=== PATIENT | female | born 1950 | race African-American/Black ===

== ENCOUNTER 2018-05-09 07:48 | Emergency (ER) | payer OTHER ==
[2018-05-09] MEDS ORDERED: IBUPROFEN 200 MG TAB PO ONE (08:56)
--- NOTE | 2018-05-09 09:44 | RAD REPORT ---
EXAM DESCRIPTION: RAD - Ankle Left 3 View -05/09/2018 8:54 am CLINICAL HISTORY: Left ankle pain FINDINGS: No acute fracture or dislocation is seen. Large calcaneal spurs are seen. Osteoarthritis involves the ankle consisting joint space narrowing an d osteophytes
--- NOTE | 2018-05-09 09:58 | ER ---
Nurse's Notes [facility] Name: Tiki Mancini Age: 68 yrs Sex: Female : 1950 Arrival Date: 05/09/2018 Time: 07:50 Bed 12 Private MD: Taylor Martin H Diagnosis: Pain in left ankle and joints of left foot Presentation: 05/09 08:21 Presenting complaint: Patient states: Left ankle pain since yesterday. Denies injury. hb Transition of care: patient was not received from another setting of care. Onset of symptoms was May 08, 2010. Risk Assessment: Do you want to hurt yourself or someone else? Patient reports no desire to harm self or others. Care prior to arrival: None. 08:21 Method Of Arrival: Ambulatory hb 08:21 Acuity: BEATRIZ 4 hb 08:30 Initial Sepsis Screen: Does the patient meet any 2 criteria? No. Patient's initial hb sepsis screen is negative. Does the patient have a suspected source of infection? No. Patient's initial sepsis screen is negative. Historical: - Allergies: 08:22 No Known Allergies; hb - Immunization history:: Adult Immunizations up to date. - Social history:: Smoking status: Patient/guardian denies using tobacco. - Ebola Screening: : No symptoms or risks identified at this time. Screenin:00 Abuse screen: Denies threats or abuse. Denies injuries from another. Nutritional hb screening: No deficits noted. Tuberculosis screening: No symptoms or risk factors identified. Fall Risk None identified. Assessment: 08:45 General: Appears in no apparent distress. Behavior is calm, cooperative. Pain: Pain hb currently is 7 out of 10 on a pain scale. Neuro: Level of Consciousness is awake, alert, obeys commands, Oriented to person, place, time, situation. Cardiovascular: Capillary refill < 3 seconds Patient's skin is warm and dry. Respiratory: Airway is patent Trachea midline Respiratory effort is even, unlabored, Respiratory pattern is regular, symmetrical. GI: No signs and/or symptoms were reported involving the gastrointestinal system. : No signs and/or symptoms were reported regarding the genitourinary system. EENT: No signs and/or symptoms were reported regarding the EENT system. Derm: Skin is intact, is healthy with good turgor, Skin is pink, warm \T\ dry. Musculoskeletal: Reports pain in left ankle. 09:45 Reassessment: Patient appears in no apparent distress at this time. Patient and/or hb family updated on plan of care and expected duration. Pain level reassessed. Patient is alert, oriented x 3, equal unlabored respirations, skin warm/dry/pink. Vital Signs: 08:22 BP 188 / 94; Pulse 80; Resp 18; Temp 97.8; Pulse Ox 100% on R/A; Pain 7/10; hb ED Course: 07:50 Patient arrived in ED. as 07:50 Taylor Martin DO is Private Physician. as 08:11 Guillermo Borja MD is Attending Physician. kdr 08:22 Triage completed. hb 08:22 Arm band placed on right wrist. hb 08:48 Vannessa Joy, RN is Primary Nurse. hb 08:52 X-ray completed. Portable x-ray completed in exam room. Patient tolerated procedure tm4 well. 08:54 Ankle Left 3 View XRAY In Process Unspecified. EDMS 09:00 Patient has correct armband on for positive identification. Bed in low position. Call hb light in reach. Side rails up X 1. 09:58 Taylor Martin DO is Referral Physician. kdr 10:31 No provider procedures requiring assistance completed. Patient did not have IV access hb during this emergency room visit. Administered Medications: 08:52 Drug: Motrin 600 mg Route: PO; hb 09:45 Follow up: Response: No adverse reaction; Pain is decreased hb Outcome: 09:58 Discharge ordered by . kdr 10:31 Discharged to home ambulatory, with crutches. hb 10:31 Condition: stable 10:31 Discharge instructions given to patient, Instructed on discharge instructions, follow up and referral plans. medication usage, crutch walking, Demonstrated understanding of instructions, follow-up care, medications, crutch walking, Prescriptions given X 1. 10:32 Patient left the ED. hb Signatures: Dispatcher [employer] EDDE Guillermo Borja MD MD kdr Loida Méndez tm4 Tanisha Leno as Vannessa Joy, RN RN hb
--- NOTE | 2018-05-09 09:59 | EDPHYS ---
Physician Documentation [facility] Name: Tiki Mancini Age: 68 yrs Sex: Female : 1950 Arrival Date: 05/09/2018 Time: 07:50 Bed 12 Private MD: Taylor Martin H ED Physician Guillermo Borja HPI: 05/09 08:36 This 68 yrs old Black Female presents to ER via Ambulatory with complaints of Ankle kdr Pain. 08:36 The patient presents with decreased range of motion, an injury, pain, that is acute, kdr tenderness. The complaints affect the left ankle. Onset: The symptoms/episode began/occurred gradually, 2 day(s) ago. Context: The problem was sustained at home, resulted from an unknown cause, The patient has been using her ankle/foot more in helping her daughter with her wheelchair that is broken, Increased use. 08:44 Associated signs and symptoms: The patient has no apparent associated signs or kdr symptoms. Modifying factors: The symptoms are alleviated by sitting, the symptoms are aggravated by weight bearing, movement. Severity of symptoms: At their worst the symptoms were mild, moderate, just prior to arrival, in the emergency department the symptoms are unchanged. The patient has experienced similar episodes in the past, a few times, Usually is not quite this bad or lasting as long. The patient has not recently seen a physician. Historical: - Allergies: 08:22 No Known Allergies; hb - Immunization history:: Adult Immunizations up to date. - Social history:: Smoking status: Patient/guardian denies using tobacco. - Ebola Screening: : No symptoms or risks identified at this time. ROS: 08:44 Constitutional: Negative for fever, chills, and weight loss, Eyes: Negative for injury, kdr pain, redness, and discharge, Neck: Negative for injury, pain, and swelling, Cardiovascular: Negative for chest pain, palpitations, and edema, Respiratory: Negative for shortness of breath, cough, wheezing, and pleuritic chest pain, Abdomen/GI: Negative for abdominal pain, nausea, vomiting, diarrhea, and constipation, Back: Negative for injury and pain, : Negative for injury, bleeding, discharge, and swelling, Skin: Negative for injury, rash, and discoloration, Neuro: Negative for headache, weakness, numbness, tingling, and seizure activity. Psych: Negative for depression, anxiety, suicide ideation, homicidal ideation, and hallucinations, Allergy/Immunology: Negative for hives, rash, and allergies, Endocrine: Negative for neck swelling, polydipsia, polyuria, polyphagia, and marked weight changes, Hematologic/Lymphatic: Negative for swollen nodes, abnormal bleeding, and unusual bruising. 08:44 MS/extremity: Positive for pain, tenderness, of the left lateral ankle, left heel and left medial ankle, Negative for injury or acute deformity, abrasion, contusion, decreased range of motion, ecchymosis, erythema, laceration, paresthesias, puncture, rash, swelling, warmth. Exam: 08:44 Constitutional: This is a well developed, well nourished patient who is awake, alert, kdr and in no acute distress. Head/Face: Normocephalic, atraumatic. Eyes: Pupils equal round and reactive to light, extra-ocular motions intact. Lids and lashes normal. Conjunctiva and sclera are non-icteric and not injected. Cornea within normal limits. Periorbital areas with no swelling, redness, or edema. Neck: Trachea midline, no thyromegaly or masses palpated, and no cervical lymphadenopathy. Supple, full range of motion without nuchal rigidity, or vertebral point tenderness. No Meningismus. Chest/axilla: Normal chest wall appearance and motion. Nontender with no deformity. No lesions are appreciated. Cardiovascular: Regular rate and rhythm with a normal S1 and S2. No gallops, murmurs, or rubs. Normal PMI, no JVD. No pulse deficits. Respiratory: Lungs have equal breath sounds bilaterally, clear to auscultation and percussion. No rales, rhonchi or wheezes noted. No increased work of breathing, no retractions or nasal flaring. Abdomen/GI: Soft, non-tender, with normal bowel sounds. No distension or tympany. No guarding or rebound. No evidence of tenderness throughout. Back: No spinal tenderness. No costovertebral tenderness. Full range of motion. Skin: Warm, dry with normal turgor. Normal color with no rashes, no lesions, and no evidence of cellulitis. Neuro: Awake and alert, GCS 15, oriented to person, place, time, and situation. Cranial nerves II-XII grossly intact. Motor strength 5/5 in all extremities. Sensory grossly intact. Cerebellar exam normal. Normal gait. Psych: Awake, alert, with orientation to person, place and time. Behavior, mood, and affect are within normal limits. 08:44 Musculoskeletal/extremity: Extremities: grossly normal except: pain, tenderness. Vital Signs: 08:22 BP 188 / 94; Pulse 80; Resp 18; Temp 97.8; Pulse Ox 100% on R/A; Pain 7/10; hb MDM: 09:57 Data reviewed: vital signs, nurses notes, radiologic studies. Counseling: I had a kdr detailed discussion with the patient and/or guardian regarding: the historical points, exam findings, and any diagnostic results supporting the discharge/admit diagnosis, radiology results, the need for outpatient follow up. 09:58 Patient medically screened. [facility] 05/09 08:33 Order name: Ankle Left 3 View XRAY; Complete Time: 09:57 kdr 05/09 08:34 Order name: Toni wrap-joint: left ankle; Complete Time: 08:48 kdr 05/09 10:07 Order name: Crutches; Complete Time: 10:29 kdr Administered Medications: 08:52 Drug: Motrin 600 mg Route: PO; hb 09:45 Follow up: Response: No adverse reaction; Pain is decreased hb Disposition: 05/09/18 09:58 Discharged to Home. Impression: Pain in left ankle and joints of left foot. - Condition is Stable. - Discharge Instructions: Joint Pain, Arthritis, Musculoskeletal Pain, Ankle Pain. - Prescriptions for Tramadol 50 mg Oral Tablet - take 1 tablet by ORAL route every 8 hours as needed; 12 tablet. - Medication Reconciliation Form, Thank You Letter, Work release form form. - Follow up: Taylor Martin DO; When: 2 - 3 days; Reason: If symptoms return, Further diagnostic work-up, Recheck today's complaints, Continuance of care, Re-evaluation by your physician. - Problem is new. - Symptoms have improved. Signatures: Dispatcher [employer] EDMS Guillermo Borja MD MD [facility] Vannessa Joy RN RN Corrections: (The following items were deleted from the chart) 10:32 09:58 05/09/2018 09:58 Discharged to Home. Impression: Pain in left ankle and joints of hb left foot. Condition is Stable. Forms are Medication Reconciliation Form, Thank You Letter, Antibiotic Education, Prescription Opioid Use. Follow up: Taylor Martin; When: 2 - 3 days; Reason: If symptoms return, Further diagnostic work-up, Recheck today's complaints, Continuance of care, Re-evaluation by your physician. Problem is new. Symptoms have improved. kdr
== END 2018-05-09 10:32 | disposition home or self-care (01) ==
LOC: ER 07:48
DX: M25.572 Pain in left ankle and joints of left foot (principal)
CPT/HCPCS: 99284

== ENCOUNTER 2019-07-13 09:35 | Emergency (ER) | payer OTHER ==
--- OUTSIDE RECORDS SUMMARY | 2019-07-13 09:37 | XMS REPORT ---
:1950 [facility] Address [address] [place] [address] Dr. Mike [address] [place] [id number] Care Team Providers Name Role Phone Unavailable Unavailable Unavailable Payers Payer Name Policy Type Policy Number Effective Date Expiration Date Problems This patient has no known problems. Allergies, Adverse Reactions, Alerts This patient has no known allergies or adverse reactions. Medications This patient has no known medications.
[2019-07-13] MEDS ORDERED: NA CHLORIDE 0.9% 1,000 ML ONE (10:41)
[2019-07-13] MEDS ORDERED: ONDANSETRON 4 MG/2 ML VIAL ONE (10:41)
--- NOTE | 2019-07-13 10:45 | RAD REPORT ---
EXAM DESCRIPTION: RAD - Chest Pa And Lat (2 Views) - 07/13/2019 10:40 am CLINICAL HISTORY: Cough;Fever COMPARISON: March 2015 TECHNIQUE: PA and lateral views of the chest were obtained. FINDINGS: The lungs are clear. Lung markings are similar to comparison. Heart size is normal and ce ntral vasculature is within normal limits. No pleural effusion or pneumothorax seen. No acute bony finding noted. No aortic abnormality. IMPRESSION: No acute cardiopulmonary process.
[2019-07-13 11:14] LABS: Absolute Lymphocytes (CBC) 0.6 K/uL (0.7-4.9); Basophils % 0.5 % (0-1.3); Hematocrit 36.9 % (36.0-45.0); Lymphocytes % 16.7 % (15.3-44.8); MPV 8.1 fL (7.6-11.3); RBC Red Blood Cell Count 4.55 M/uL (3.86-4.86)
[2019-07-13 11:30] LABS: Albumin 3.4 g/dL (3.4-5.0); Bilirubin Total 0.3 mg/dL (0.2-1.0); Potassium 3.4 mmol/L (3.5-5.1); Protein, Total 7.7 g/dL (6.4-8.2)
--- NOTE | 2019-07-13 11:42 | ER ---
Nurse's Notes [facility] Name: Tiki Mancini Age: 69 yrs Sex: Female : 1950 Arrival Date: 07/13/2019 Time: 09:36 Bed 2 Private MD: Diagnosis: Streptococcal pharyngitis Presentation: 07/13 09:53 Presenting complaint: Patient states: body aches, fever/chills started yesterday, took iw Tylenol at 7 am, also feeling weak, has cough, is nauseated, not vomiting, grandson was sick and coughing. Transition of care: patient was not received from another setting of care. Onset of symptoms was July 13, 2019. Risk Assessment: Do you want to hurt yourself or someone else? Patient reports no desire to harm self or others. Initial Sepsis Screen: Does the patient meet any 2 criteria? Temp <36.0*C (96.8*F)) or > 38.3*C (100.9*F). Does the patient have a suspected source of infection?. Care prior to arrival: Medication(s) given: Tylenol. 09:53 Method Of Arrival: Wheelchair iw 09:53 Acuity: BEATRIZ 3 iw Historical: - Allergies: 09:55 No Known Allergies; iw - PMHx: 09:55 Diabetes - NIDDM; Hypertension; iw 09:57 colon cancer; iw - PSHx: 09:57 cancer removed from colon; Hysterectomy; Tubal ligation; iw - Immunization history:: Adult Immunizations not up to date. - Social history:: Smoking status: Patient/guardian denies using tobacco. - Ebola Screening: : Patient negative for fever greater than or equal to 101.5 degrees Fahrenheit, and additional compatible Ebola Virus Disease symptoms Patient denies exposure to infectious person Patient denies travel to an Ebola-affected area in the 21 days before illness onset No symptoms or risks identified at this time. Screenin:00 Abuse screen: Denies threats or abuse. Nutritional screening: No deficits noted. rb1 Tuberculosis screening: No symptoms or risk factors identified. Fall Risk None identified. Assessment: 10:00 General: Appears in no apparent distress. comfortable, Behavior is calm, cooperative, rb1 Reports fever for. Pain: Complains of pain in abdomen Pain currently is 5 out of 10 on a pain scale. Neuro: Level of Consciousness is awake, alert, obeys commands, Oriented to person, place, time, situation. Cardiovascular: Capillary refill < 3 seconds is brisk in bilateral fingers. Respiratory: Reports cough that is productive, clear sputum Airway is patent Respiratory effort is even, unlabored, Respiratory pattern is regular, symmetrical. GI: Abdomen is non-distended, Reports nausea. : No signs and/or symptoms were reported regarding the genitourinary system. Derm: Skin is dry, Skin is normal, Skin temperature is warm. 11:00 Reassessment: Patient appears in no apparent distress at this time. No changes from rb1 previously documented assessment. 11:32 Reassessment: Patient appears in no apparent distress at this time. Patient and/or rb1 family updated on plan of care and expected duration. Pain level reassessed. Patient is alert, oriented x 3, equal unlabored respirations, skin warm/dry/pink. Vital Signs: 09:55 BP 133 / 65; Pulse 84; Resp 18 S; Temp 102.5; Pulse Ox 99% on R/A; Weight 84.37 kg; iw Height 5 ft. 6 in. (167.64 cm); Pain 8/10; 10:55 BP 144 / 66; Pulse 82; Resp 20; Temp 100.0(O); Pulse Ox 99% on R/A; rb1 11:30 BP 139 / 60; Pulse 79; Resp 20; Pulse Ox 100% on R/A; Pain 6/10; rb1 09:55 Body Mass Index 30.02 (84.37 kg, 167.64 cm) iw ED Course: 09:36 Patient arrived in ED. as 09:55 Triage completed. iw 09:55 Arm band placed on. iw 09:57 Estela Ordoñez, RN is Primary Nurse. rb1 10:00 Patient has correct armband on for positive identification. Bed in low position. Call rb1 light in reach. Side rails up X 1. Side rails up X2. manager monitoring on. Pulse ox on. NIBP on. sheet was given. 10:01 Anthony Anne NP is PHCP. pm1 10:01 Carl Escobar MD is Attending Physician. pm1 10:37 Chest Pa And Lat (2 Views) XRAY In Process Unspecified. EDMS 10:45 Missed attempt(s): 22 gauge in right antecubital area. Bleeding controlled, band aid rb1 applied, catheter tip intact. 10:50 Inserted saline lock: 22 gauge in left antecubital area, using aseptic technique. Blood rb1 collected. 11:51 No provider procedures requiring assistance completed. IV discontinued, intact, rb1 bleeding controlled, No redness/swelling at site. Pressure dressing applied. Administered Medications: 10:10 CANCELLED (Patient Refused): Motrin 600 mg PO once pm1 11:00 Drug: Zofran 4 mg Route: IVP; Site: left antecubital; rb1 11:15 Follow up: Response: No adverse reaction; Nausea is decreased rb1 11:00 Drug: NS 0.9% 1000 ml Route: IV; Rate: 1000 ml; Site: left antecubital; rb1 11:32 Follow up: IV Status: Completed infusion; IV Intake: 200ml rb1 Intake: 11:32 IV: 200ml; Total: 200ml. rb1 Outcome: 11:41 Discharge ordered by MD. pm1 11:51 Discharged to home via wheelchair, with family. rb1 11:51 Condition: stable 11:51 Discharge instructions given to patient, Instructed on discharge instructions, follow up and referral plans. medication usage, Demonstrated understanding of instructions, follow-up care, medications, Prescriptions given X 2. 11:52 Patient left the ED. rb1 Signatures: Dispatcher [employer] Tanisha Fernández Irene, HERNAN RN iw Estela Ordoñez RN RN rb1 Anthony Anne, RONNIE OPERATIONS MANAGER pm1 Corrections: (The following items were deleted from the chart) 09:57 09:55 BP 122 / 104; Pulse 84bpm; Resp 18bpm; Spontaneous; Pulse Ox 99% RA; Temp 102.5F; iw 84.37 kg; Height 5 ft. 6 in.; BMI: 30.0; Pain 8/10; iw
--- NOTE | 2019-07-13 11:42 | EDPHYS ---
Physician Documentation [facility] Name: Tiki Mancini Age: 69 yrs Sex: Female : 1950 Arrival Date: 07/13/2019 Time: 09:36 Bed 2 Private MD: STEFAN Physician Carl Escobar HPI: 07/13 10:36 This 69 yrs old Black Female presents to ER via Wheelchair with complaints of Cough, pm1 fever. 14:06 The patient or guardian reports cough, with no sputum. Onset: The symptoms/episode pm1 began/occurred yesterday. Severity of symptoms: in the emergency department the symptoms are actually worse. Modifying factors: The symptoms are alleviated by Tylenol, the symptoms are aggravated by nothing. Associated signs and symptoms: Pertinent positives: fever, nausea, generalized weakness. The patient has not experienced similar symptoms in the past. Patient's grandson with similar symptoms, cough and fever, that he just got over. Historical: - Allergies: 09:55 No Known Allergies; iw - PMHx: 09:55 Diabetes - NIDDM; Hypertension; iw 09:57 colon cancer; iw - PSHx: 09:57 cancer removed from colon; Hysterectomy; Tubal ligation; iw - Immunization history:: Adult Immunizations not up to date. - Social history:: Smoking status: Patient/guardian denies using tobacco. - Ebola Screening: : Patient negative for fever greater than or equal to 101.5 degrees Fahrenheit, and additional compatible Ebola Virus Disease symptoms Patient denies exposure to infectious person Patient denies travel to an Ebola-affected area in the 21 days before illness onset No symptoms or risks identified at this time. ROS: 10:36 Constitutional: Negative for fever, chills, and weight loss, Eyes: Negative for injury, pm1 pain, redness, and discharge, ENT: Negative for injury, pain, and discharge, Neck: Negative for injury, pain, and swelling, Cardiovascular: Negative for chest pain, palpitations, and edema. 10:36 Back: Negative for injury and pain, : Negative for injury, bleeding, discharge, and swelling, MS/Extremity: Negative for injury and deformity, Skin: Negative for injury, rash, and discoloration, Neuro: Negative for headache, weakness, numbness, tingling, and seizure. 10:36 Respiratory: Positive for cough, sputum, Negative for shortness of breath, wheezing. 10:36 Abdomen/GI: Positive for nausea, Negative for abdominal pain, vomiting, diarrhea. 10:36 ENT: Positive for Sore throat with coughing. pm1 Exam: 14:06 Constitutional: This is a well developed, well nourished patient who is awake, alert, pm1 and in no acute distress. Head/Face: Normocephalic, atraumatic. Eyes: Pupils equal round and reactive to light, extra-ocular motions intact. Lids and lashes normal. Conjunctiva and sclera are non-icteric and not injected. Cornea within normal limits. Periorbital areas with no swelling, redness, or edema. ENT: Nares patent. No nasal discharge, no septal abnormalities noted. Tympanic membranes are normal and external auditory canals are clear. Oropharynx with no redness, swelling, or masses, exudates, or evidence of obstruction, uvula midline. Mucous membranes moist. Neck: Trachea midline, no thyromegaly or masses palpated, and no cervical lymphadenopathy. Supple, full range of motion without nuchal rigidity, or vertebral point tenderness. No Meningismus. Chest/axilla: Normal chest wall appearance and motion. Nontender with no deformity. No lesions are appreciated. Cardiovascular: Regular rate and rhythm with a normal S1 and S2. No gallops, murmurs, or rubs. Normal PMI, no JVD. No pulse deficits. Respiratory: Lungs have equal breath sounds bilaterally, clear to auscultation and percussion. No rales, rhonchi or wheezes noted. No increased work of breathing, no retractions or nasal flaring. Abdomen/GI: Soft, non-tender, with normal bowel sounds. No distension or tympany. No guarding or rebound. No evidence of tenderness throughout. Back: No spinal tenderness. No costovertebral tenderness. Full range of motion. Skin: Warm, dry with normal turgor. Normal color with no rashes, no lesions, and no evidence of cellulitis. MS/ Extremity: Pulses equal, no cyanosis. Neurovascular intact. Full, normal range of motion. 14:06 Neuro: Orientation: is normal, Mentation: is normal, Motor: is normal, moves all fours, Sensation: is normal, no obvious gross deficits. Vital Signs: 09:55 BP 133 / 65; Pulse 84; Resp 18 S; Temp 102.5; Pulse Ox 99% on R/A; Weight 84.37 kg; iw Height 5 ft. 6 in. (167.64 cm); Pain 8/10; 10:55 BP 144 / 66; Pulse 82; Resp 20; Temp 100.0(O); Pulse Ox 99% on R/A; rb1 11:30 BP 139 / 60; Pulse 79; Resp 20; Pulse Ox 100% on R/A; Pain 6/10; rb1 09:55 Body Mass Index 30.02 (84.37 kg, 167.64 cm) iw MDM: 10:04 Patient medically screened. deyanira 11:38 Data reviewed: vital signs. Data interpreted: Pulse oximetry: on room air is 99 %. pm1 Interpretation: normal. Counseling: I had a detailed discussion with the patient and/or guardian regarding: the historical points, exam findings, and any diagnostic results supporting the discharge/admit diagnosis, lab results, radiology results, the need for outpatient follow up, to return to the emergency department if symptoms worsen or persist or if there are any questions or concerns that arise at home. 07/13 10:12 Order name: Flu; Complete Time: 11:38 pm1 07/13 10:12 Order name: Strep; Complete Time: 11:33 pm1 07/13 10:12 Order name: Chest Pa And Lat (2 Views) XRAY; Complete Time: 10:51 pm1 07/13 10:12 Order name: CBC with Diff; Complete Time: 11:33 pm1 07/13 10:12 Order name: CMP; Complete Time: 11:33 pm1 07/13 10:12 Order name: IV Saline Lock; Complete Time: 11:06 pm1 Administered Medications: 10:10 CANCELLED (Patient Refused): Motrin 600 mg PO once pm1 11:00 Drug: Zofran 4 mg Route: IVP; Site: left antecubital; rb1 11:15 Follow up: Response: No adverse reaction; Nausea is decreased rb1 11:00 Drug: NS 0.9% 1000 ml Route: IV; Rate: 1000 ml; Site: left antecubital; rb1 11:32 Follow up: IV Status: Completed infusion; IV Intake: 200ml rb1 Disposition: 07/14 10:25 Co-signature as Attending Physician, Carl Escobar MD I agree with the assessment and deyanira plan of care. Disposition: 07/13/19 11:41 Discharged to Home. Impression: Streptococcal pharyngitis. - Condition is Stable. - Discharge Instructions: Strep Throat. - Prescriptions for Amoxicillin 500 mg Oral Capsule - take 1 capsule by ORAL route every 8 hours for 10 days; 30 tablet. Zofran 4 mg Oral Tablet - take 1 tablet by ORAL route every 8 hours As needed; 20 tablet. - Medication Reconciliation Form, Thank You Letter, Antibiotic Education, Prescription Opioid Use form. - Follow up: Emergency Department; When: As needed; Reason: Worsening of condition. Follow up: Private Physician; When: 2 - 3 days; Reason: Recheck today's complaints, Continuance of care, Re-evaluation by your physician. - Problem is new. - Symptoms have improved. Signatures: Dispatcher [employer] EDCarl Salcedo MD MD cha Williams, Irene RN RN iw Estela Ordoñez RN RN rb1 Anthony Anne, SOAP CHIPPER SOAP CHIPPER pm1 Corrections: (The following items were deleted from the chart) 07/13 10:10 10:03 Motrin 600 mg PO once ordered. pm1 11:52 11:41 07/13/2019 11:41 Discharged to Home. Impression: Streptococcal pharyngitis. rb1 Condition is Stable. Forms are Medication Reconciliation Form, Thank You Letter, Antibiotic Education, Prescription Opioid Use. Follow up: Emergency Department; When: As needed; Reason: Worsening of condition. Follow up: Private Physician; When: 2 - 3 days; Reason: Recheck today's complaints, Continuance of care, Re-evaluation by your physician. Problem is new. Symptoms have improved. pm1
[2019-07-13 12:14] VITALS: O2SAT 99
[2019-07-13 12:15] VITALS: BP 144/66; TEMP 100
== END 2019-07-13 11:52 | disposition home or self-care (01) ==
LOC: ER 09:35
DX: J02.0 Streptococcal pharyngitis (principal); I10 Essential (primary) hypertension; Z85.038 Personal history of other malignant neoplasm of large intestine
CPT/HCPCS: 96361; 85025; 36415; 87081; 80053; 87804 ×2; 71046; 96374; 99284; J7030; J2405

== ENCOUNTER 2019-12-28 07:31 | Emergency (ER) | payer OTHER ==
--- OUTSIDE RECORDS SUMMARY | 2019-12-28 07:36 | XMS REPORT | Clinical Summary ---
:1950 Author Organization [employer] Address [address] [place] [address] Care Team Providers Name Role Phone Martin, Filemon BALDERRAMA Primary Care Provider Allergies No Known Allergies Medications Medication Sig Dispensed Refills Start Date End Date Status metFORMIN (GLUCOPHAGE) Take 500 mg 0 Active 1,000 mg tablet by mouth daily. lisinopril (PRINIVIL) 40 Take 40 mg 0 Active mg tablet by mouth daily. metoprolol succinate XL Take 100 mg 0 Active (TOPROL-XL) 100 mg 24 hr by mouth tablet daily. aspirin (ECOTRIN) 81 MG Take 81 mg 0 Active enteric coated tablet by mouth daily. clonIDINE (CATAPRES) 0.1 Take 0.1 mg 0 Active MG tablet by mouth 2 (two) times a day. hydroCHLOROthiazide Take 25 mg 0 Active (HYDRODIURIL) 25 MG tablet by mouth daily. NUTRITIONAL SUPPLEMENTS Take by 0 Active ORAL mouth. MVI, acetaminophen (TYLENOL) Take 1 0 05/30/201906/04 325 MG tablet tablet (325 mg total) by mouth every 6 (six) hours for 5 days. traMADol (ULTRAM) 50 mg Take 1 15 tablet 0 05/30/201906/02 tabletIndications: acute tablet (50 pain mg total) by mouth every 6 (six) hours as needed for severe pain for up to 15 doses .Acute Pain. Active Problems Problem Noted Date Rectal cancer 05/28/2019 Encounters Date Type Specialty Care Team Description 11/10/2019 Orders Only General Surgery Alagugurusamy, Malignant neoplasm Nimo Arrington, of rectum (HCC) [employer] (Primary Dx) 10/30/2019 Oncology Oncology Cailin Noble, Survivorship RN 07/17/2019 Office Visit General Surgery Jaime Langford Rectal cance r (HCC) MD Reza (Primary Dx) 06/13/2019 Office Visit General Surgery Ignacia Diaz Toño Rectal cancer (HCC) (Primary Dx) 05/28/2019 Anesthesia Event General Surgery Geoff Silva MD Felan, Veronica Lynn, [employer] 05/28/2019 Surgery General Surgery Jaime Langford ROBOTIC ASSI CLAY Cobb MD LAPAROSCOPIC lo w ANTERIOR RESECT ION WITH PERIAORTIC LYMPH NODE DISSECTION, SPL ENIC FLEXURE TAKEDOW N, ICH, FLEX SIG W ITH SUBMUCOSAL INJECTION OF IC G 05/28/2019 - Hospital Encounter General Surgery Jaime Langford Rectal cancer (HCC) 05/30/2019 MD Reza 05/14/2019 Pre-Admit Testing Pre-Admission Jaime Langford Preop exa mination Appointment Testing MD Reza (Primary Dx) 05/07/2019 Orders Only General Surgery Jaime Langford MD 05/07/2019 Orders Only General Surgery Winter Kelly MA 05/07/2019 Orders Only General Surgery Winter Kelly MA 05/02/2019 Office Visit General Surgery Jaime Langford Rectal lubna r (HCC) MD Reza (Primary Dx) after 12/27/2018 Family History Medical History Relation Name Comments Kidney disease Brother Diabetes Father Hypertension Father Diabetes Mother Hypertension Mother Relation Name Status Comments Brother Father Mother Social History Tobacco Use Types Packs/Day Years Used Date Never Smoker Smokeless Tobacco: Never Used Alcohol Use Drinks/Week oz/Week Comments Never Alcohol Habits Answer Date Recorded How often do you have a drink containing alcohol? Never 05/02/2019 How many drinks containing alcohol do you have on a typical Not asked day when you are drinking? How often do you have six or more drinks on one occasion? No t asked Sex Assigned at Date Recorded Not on file Job Start Date Occupation Industry Not on file Not on file Not on file Travel History Travel Start Travel End No recent travel history available. Last Filed Vital Signs Vital Sign Reading Time Taken Comments Blood Pressure 113/60 07/17/2019 8:21 AM DAIRY GRAZER Pulse 76 07/17/2019 8:21 AM DAIRY GRAZER Temperature 36.8 C (98.3 F) 07/17/2019 8:21 AM DAIRY GRAZER Respiratory Rate 17 05/30/2019 12:10 PM CDT Oxygen Saturation 97% 05/30/2019 12:10 PM CDT Inhaled Oxygen Concentration - - Weight 84.5 kg (186 lb 3.2 oz) 05/28/2019 10:27 AM CDT Height 167.6 cm (5' 6") 05/28/2019 10:27 AM CDT Body Mass Index 30.05 05/28/2019 10:27 AM CDT Plan of Treatment Health Maintenance Due Date Last Done Comments BREAST CANCER SCREENING 2001 COLONOSCOPY SCREENING 2001 SHINGLES VACCINES (#1) 2001 65+ PNEUMOCOCCAL VACCINE (1 of 2 - PCV13) 02/02/2016 INFLUENZA VACCINE 02/28/2020 Procedures Procedure Name Priority Date/Time Associated Comments Diagnosis POC GLUCOSE Routine 05/30/2019 1:03 Results for this PM CDT procedure are i n the results section. POC GLUCOSE Routine 05/30/2019 12:12 Results for this PM CDT procedure are i n the results section. POC GLUCOSE Routine 05/30/2019 7:34 Results for this AM CDT procedure are i n the results section. HC COMPLETE BLD COUNT Routine 05/30/2019 4:05 Re sults for this W/AUTO DIFF AM CDT procedure are i n the results section. ESTIMATED GFR Routine 05/30/2019 4:00 Results fo r this AM CDT procedure are i n the results section. BASIC METABOLIC PANEL Routine 05/30/2019 4:00 Re sults for this AM CDT procedure are i n the results section. POC GLUCOSE Routine 05/29/2019 11:25 Results for this PM CDT procedure are i n the results section. POC GLUCOSE Routine 05/29/2019 5:04 Results for this PM CDT procedure are i n the results section. POC GLUCOSE Routine 05/29/2019 11:15 Results for this AM CDT procedure are i n the results section. POC GLUCOSE Routine 05/29/2019 8:45 Results for this AM CDT procedure are i n the results section. HC COMPLETE BLD COUNT Routine 05/29/2019 4:05 Re sults for this W/AUTO DIFF AM CDT procedure are i n the results section. ESTIMATED GFR Routine 05/29/2019 4:00 Results fo r this AM CDT procedure are i n the results section. BASIC METABOLIC PANEL Routine 05/29/2019 4:00 Re sults for this AM CDT procedure are i n the results section. POC GLUCOSE Routine 05/28/2019 6:08 Results for this PM CDT procedure are i n the results section. NC AN ELECTIVE Routine 05/28/2019 2:03 Results f or this ENDOTRACHEAL AIRWAY PM CDT procedur e are in the results section. RESECTION, COLON, LOW 05/28/2019 1:29 Rectal cancer ( HCC) ANTERIOR, PM CDT LAPAROSCOPIC, ROBOT-ASSISTED Case Notes XI DAVINCI Special Needs XI DAV[facility]CI POC GLUCOSE Routine 05/28/2019 11:15 AM Results for this CDT procedure are i n the results section. SURGICAL PATHOLOGY Routine 05/28/2019 9:14 AM Re sults for this REQUEST CDT procedure are i n the results section. ESTIMATED GFR Routine 05/14/2019 2:52 PM Results for this CDT procedure are i n the results section. HC COMPLETE BLD COUNT Routine 05/14/2019 2:52 PM Preop examin ation Results for this W/AUTO DIFF CDT procedure are i n the results section. COMPREHENSIVE Routine 05/14/2019 2:52 PM Preop examination Re sults for this METABOLIC PANEL CDT procedure ar e in the results section. HEMOGLOBIN A1C Routine 05/14/2019 2:52 PM Preop examination R esults for this CDT procedure are i n the results section. TYPE AND SCREEN Routine 05/14/2019 2:52 PM Preop examination Results for this CDT procedure are i n the results section. after 12/27/2018 Results POC glucose (05/30/2019 1:03 PM CDT)Only the most recent of9 resultswithin the time period is included. Pathologist Sig nature POC glucose 107 (H) 65 - 99 mg/dL [facility] Comment: [facility] Notified RN Meter ID: [id number] Medical Instructor: Julian Figueredo Specimen Performing Organization Address City/State/Zipcode Phone Number [facility] DEPARTMENT OF PATHOLOGY AND [address], [place] [address] GEN[facility] [address] CBC with platelet and differential (05/30/2019 4:05 AM CDT)Only the most recent of3 resultswithin the time period is included. WBC 9.51 4.50 - 11.00 [facility] k/uL HOSPITAL RBC 3.95 (L) 4.20 - 5.50 [facility] m/uL HOSPITAL HGB 10.3 (L) 12.0 - 16.0 [facility] g/dL [facility] HCT 34.5 (L) 37.0 - 47.0 % [facility] MCV 87.3 82.0 - 100.0 [facility] MCH 26.1 (L) 27.0 - 34.0 pg [facility] MCHC 29.9 (L) 31.0 - 37.0 [facility] g/dL [facility] RDW - SD 46.6 37.0 - 55.0 fL [facility] MPV 9.3 8.8 - 13.2 fL [facility] Platelet count 214 150 - 400 k/uL [facility] Nucleated RBC 0.00 /100 WBC [facility] Neutrophils 63.8 39.0 - 69.0 % [facility] Lymphocytes 26.5 25.0 - 45.0 % [facility] Monocytes 6.6 0.0 - 10.0 % [facility] Eosinophils 2.4 0.0 - 5.0 % [facility] Basophils 0.4 0.0 - 1.0 % [facility] Immature granulocytes 0.3Comment: 0.0 - 1.0 % [facility] "Immature HOSPITAL granulocytes" (promyelocytes , myelocytes, metamyelocytes ) Specimen Blood Performing Organization Address City/State/Zipcode Phone Number [facility] DEPARTMENT OF PATHOLOGY AND [address], [place] [address] GENOMIC MEDICINE [facility] [address] [place] [address] Estimated GFR (05/30/2019 4:00 AM CDT)Only the most recent of3 resultswithin the time period is included. Pathologist [facility] Estimated GFR 60 mL/min/1.73 [facility] Comment: m2 HOSPITAL Catergory Units Interpretation G1 >=90 Normal or high G2 60-89 Mildly decreased G3a 45-59 Mildly to moderately decreas ed G3b 30-44 Moderately to severely decre ased G4 15-29 Severely decreased G5 <15 Kidney failure The eGFR was calculated using the Chronic Kidney Disea se Epidemiology Collaboration (CKD-EPI) equation. Interpretation is based on recommendations of the National Kidney Foundation-Kidney Disease Outcomes Ortiz lity Initiative (NKF-KDOQI) published in 2014. Specimen Plasma specimen Performing Organization Address City/[facility]/Zipcode Phone Number [facility] DEPARTMENT OF PATHOLOGY AND [address] [place], [place] [address] [address] [place] [phone] Basic metabolic panel (05/30/2019 4:00 AM CDT)Only the most recent of2 results within the time period is included. [facility] Sig nature Sodium 140 135 - 148 mEq/L [facility] Potassium 3.8 3.5 - 5.0 mEq/L [facility] Chloride 104 98 - 112 mEq/L [facility] CO2 25 24 - 31 mEq/L [facility] Anion gap 11@ANIO 7 - 15 mEq/L [facility] BUN 13 8 - 23 mg/dL [facility] Creatinine 1.09 (H) 0.50 - 0.90 mg/dL [facility] Glucose 104 (H) 65 - 99 mg/dL [facility] Calcium 8.3 (L) 8.8 - 10.2 mg/dL [facility] Specimen Plasma specimen Performing Organization Address City/State/Zipcode Phone Number [facility] DEPARTMENT OF PATHOLOGY AND [address] [place] [address] [address] Airway (05/28/2019 2:03 PM CDT) Narrative Performed At Arnold Zamora CRNA 05/28/20 2:04 PM Airway Date/Time: 05/28/2019 1:36 PM Performed by: Arnold Zamora CRNA Authorized by: Monalisa Combs MD Location: OR Urgency: Elective Difficult Airway: No Resident/LIFE COACH/AA: Arnold Zamora CRNA Performed by: resident/LIFE COACH/AA Preoxygenated with 100% O2: Yes Mask Ventilation: Easy mask Final Airway Type: Endotracheal airway Final Endotracheal Airway: ETT Cuffed: Yes Technique Used: Direct laryngoscopy Devices/Methods Used in Placement: Int ubating stylet Insertion Site: Oral Blade Type: Orellana Laryngoscope Blade/Videolaryngoscope Medhat de Size: 2 ETT Size (mm): 7.0 Cuff at minimum occlusion pressure: Yes Measured from: Lips ETT to Lips (cm): 21 Placement Verified by: CO2 detection, di rect visualization and equal breath sounds Laryngoscopic view: Grade I - full vie w of glottis Rapid Sequence Induction (RSI): No Modified RSI: No Number of Attempts at Approach: 1 Eyes taped immediately after LOC. Atraumatic DL/Intub ation. No apparent change to oropharynx/dentition/lips Surgical pathology request (05/28/2019 9:14 AM CDT) [facility] DEPARTMENT OF PATHOLOGY AND GENOMIC MEDICINE Surgical pathology See link below [facility] DEPARTMENT OF report for PDF Lab PATHOLOGY AND Report GENOMIC MEDICINE Result status This is Final [facility] DEPARTMENT OF Report for PATHOLOGY AND [id number] GENOMIC MEDICINE Specimen Performing Organization Address City/State/[facility] Phone Number [facility] DEPARTMENT OF PATHOLOGY AND [address] [place] [phone] GENOMIC MEDICINE Type and screen (05/14/2019 2:52 PM CDT) Pathologist Sig nature ABO grouping O [facility] Rh type POS [facility] Antibody screen (gel) NEG [facility] Specimen Blood Performing Organization Address City/[facility] Phone Number [facility] DEPARTMENT OF PATHOLOGY AND [address] [place] [address] [phone] [address] Hemoglobin A1c (05/14/2019 2:52 PM CDT) Hemoglobin A1C 6.5 (H) 4.0 - 5.6 % [facility] Comment: HOSPITAL HbA1c cutoffs for diagnosing diabetes: 4.0% - 5.6% = normal 5.7% - 6.4% = increased risk for diabetes (prediabetes )9 >=6.5% = diabetes9 Goals for glycemic control (ADA 2016) < 7.0% Target for non adults with diabetes. More or less stringent targets may be appropriate for individual patients. <7.5% Target for Children and adolescents with type 1 diabetes. Specimen Blood Performing Organization Address City/[facility]/Zipcode Phone Number [facility] DEPARTMENT OF PATHOLOGY AND [address] [place] [address] [phone] [address] Comprehensive metabolic panel (05/14/2019 2:52 PM CDT) Sodium 143 135 - 148 [facility] mEq/L [facility] Potassium 4.2 3.5 - 5.0 [facility] mEq/L [facility] Chloride 103 98 - 112 mEq/L [facility] CO2 28 24 - 31 mEq/L [facility] Anion gap 12@ANIO 7 - 15 mEq/L [facility] BUN 16 8 - 23 mg/dL [facility] Creatinine 0.94 (H) 0.50 - 0.90 [facility] mg/dL [facility] Glucose 82 65 - 99 mg/dL [facility] Calcium 9.9 8.8 - 10.2 [facility] mg/dL [facility] Protein 7.6 6.3 - 8.3 g/dL [facility] Comment: HOSPITAL Dxiidsl8063.6-7.0 g/dL 1 npzg5775.4-7.6 g/dL 7 months-9tsuc846.1-7.3 g/dL 1-2 odrla467.6-7.5 g/dL >3 .0-8.0 g/dL 18-7290573.3-8.3 g/dL Albumin 3.6 3.5 - 5.0 g/dL [facility] A/G ratio 0.9 0.7 - 3.8 [facility] Alkaline phosphatase 80 35 - 104 U/L [facility] AST 15 10 - 35 U/L [facility] ALT 12 5 - 50 U/L [facility] Total bilirubin <0.2 0.0 - 1.2 [facility] mg/dL [facility] Specimen Plasma specimen Performing Organization Address City/State/Zipcode Phone Number [facility] DEPARTMENT OF PATHOLOGY AND [address], [place] [address] GENOMIC MEDICINE [facility] [address] [place] [address] after 12/27/2018 Advance Directives For more information, please contact: [phone] Type Date Recorded 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
--- OUTSIDE RECORDS SUMMARY | 2019-12-28 07:37 | XMS REPORT ---
:1950 Author Organization [facility] t Address [address] [place] [address] Care Team Providers Name Role Phone Fielmon Martin DO Primary Care Physician Murphy Yu Attending Clinician [phone] Real BECERRA Attending Clinician Unavailable Reza Langford MD Attending Clinician Toño Diaz Attending Clinician Tam Silva MD Attending Clinician Vaneas Pro NP Attending Clinician Ines Kelly MA Attending Clinician Unavailable Payers Payer Name Policy Type Policy Number Effective Date Expiration Date S abhi AETNA xxxxxxxx 2016 [place] MEDICAREAETNA 00:00:00 Yarsanism MEDICARE HMO/PP[facility] 6-PresentHMO Problems Condition Condition Condition Status Onset Resolution Last Treating Co mments Source Name Details Category Date Date Treatment Clinician Date Rectal Rectal Disease Active 2018-07 [place] [facility] cancer 0-30 [facility] 00:00: st 00 Allergies, Adverse Reactions, Alerts This patient has no known allergies or adverse reactions. Family History Family Member Diagnosis Comments Start Date Stop Date Source Natural brother Kidney disease [place] [facility] Natural father Diabetes [place] [facility] Natural father Hypertension [place] [facility] Natural mother Diabetes [place] [facility] Natural mother Hypertension [facility] Social History Social Habit Start Date Stop Date Quantity Comments Source History SDOH [place] [facility] Alcohol Std Drinks History [facility] Alcohol Binge Sex Assigned At [place] [facility] Alcohol intake 2019-06-13 2019-06-13 Lifetime [facility] thodist 00:00:00 00:00:00 non-drinker (finding) History [facility] 2019-05-02 2019-05-02 1 [place] [facility] Alcohol Frequency 00:00:00 00:00:00 Smoking Status Start Date Stop Date Source Never smoker [place] [facility] t Medications Ordered Filled Start Stop Current Ordering Indication Dosage Frequency Signature Comments Components Source Medication Medication Date Date Medication? Clinician (SIG) Name Name metFORMIN 2018-07 Yes 500mg QD Take 500 Sonia ston (GLUCOPHAGE 1-01 mg by [facility] ) 1,000 mg 18:08: mouth st tablet 44 daily. lisinopril 2018-07 Yes 40mg QD Take 40 mg [place] (PRINIVIL) 07-30 by mouth Metho di 40 mg 18:08: daily. st tablet 44 metoprolol 2018-07 Yes 100mg QD Take 100 [place] succinate 1-01 mg by [facility] XL 18:08: mouth st (TOPROL-XL) 44 daily. 100 mg 24 hr tablet aspirin 2018-07 Yes 81mg QD Take 81 mg [place] (ECOTRIN) 07-30 by mouth Method i 81 MG 18:08: daily. st enteric 44 coated tablet clonIDINE 2018-07 Yes .1mg Q.5D Take 0.1 [place] (CATAPRES) 1-01 mg by [facility] 0.1 MG 18:08: mouth 2 st tablet 44 (two) times a day. hydroCHLORO 2018-07 Yes 25mg QD Take 25 mg [place] thiazide 07-30 by mouth [facility] (HYDRODIURI 18:08: daily. st L) 25 MG 44 tablet NUTRITIONAL 2018-07 Yes Take by [place] SUPPLEMENTS 07-30 mouth. Method i ORAL 18:08: MVI, st 44 acetaminoph 2018-07- No 325mg Q6H Take 1 [place] en 07-30 tablet [facility] (TYLENOL) 00:00: 23:59 ([address] 325 MG 00 :00 total) by tablet mouth every 6 (six) hours for 5 days. traMADol 2018-07 2019- No acute pain 50mg Q6H Take 1 [place] (ULTRAM) 50 07-30 tablet (50 M ethodi mg tablet 00:00: 23:59 mg total) st 00 :00 by mouth every 6 (six) hours as needed for severe pain for up to 15 doses .Acute Pain. Vital Signs Vital Name Observation Time Observation Value Comments Source Systolic blood 2019-07-17 08:21:00 113 mm[Hg] Frannieto n Yarsanism pressure Diastolic blood 2019-07-17 08:21:00 60 mm[Hg] Carlos Manuel on Yarsanism pressure Heart rate 2019-07-17 08:21:00 76 /min Flako Degroot Body temperature 2019-07-17 08:21:00 36.83 Jodee [place] Respiratory rate 2019-05-30 12:10:34 17 /min [place] [facility] Oxygen saturation in 2019-05-30 12:10:34 97 /min Flako Degroot Arterial blood by Pulse oximetry Body height 2019-05-28 10:27:00 167.6 cm Flako Degroot Body weight 2019-05-28 10:27:00 84.46 kg Flako Degroot BMI 2019-05-28 10:27:00 30.05 kg/m2 Flako Degroot Procedures Procedure Date / Time Performed Performing Clinician Sourc e POC GLUCOSE 2019-05-30 13:03:00 Jaime Langford POC GLUCOSE 2019-05-30 12:12:00 Jaime Langford POC GLUCOSE 2019-05-30 07:34:00 Jaime Langford HC COMPLETE BLD COUNT 2019-05-30 04:05:00 Kirill Kuhn W/AUTO DIFF Oniel BASIC METABOLIC PANEL 2019-05-30 04:00:00 Kirill Kuhn Oniel ESTIMATED GFR 2019-05-30 04:00:00 Kirill Kuhn Meth odist Oniel POC GLUCOSE 2019-05-29 23:25:00 Jaime Langford POC GLUCOSE 2019-05-29 17:04:00 Jaime Langford POC GLUCOSE 2019-05-29 11:15:00 Jaime Langford POC GLUCOSE 2019-05-29 08:45:00 Jaime Langford HC COMPLETE BLD COUNT 2019-05-29 04:05:00 Kirill Kuhn Yarsanism W/AUTO DIFF Oniel BASIC METABOLIC PANEL 2019-05-29 04:00:00 Kirill Kuhn Yarsanism Oniel ESTIMATED GFR 2019-05-29 04:00:00 Kirill Kuhn odpaulina Engle POC GLUCOSE 2019-05-28 18:08:00 Jaime Langford NM AN ELECTIVE 2019-05-28 14:03:58 Arnold Zamora ENDOTRACHEAL AIRWAY RESECTION, COLON, LOW 2019-05-28 13:29:00 Jaime Langford ANTERIOR, LAPAROSCOPIC, ROBOT-ASSISTED POC GLUCOSE 2019-05-28 11:15:00 Jaime Langford SURGICAL PATHOLOGY 2019-05-28 09:14:00 Jaime Langford on Yarsanism REQUEST TYPE AND SCREEN 2019-05-14 14:52:00 Cassandra Chen HEMOGLOBIN A1C 2019-05-14 14:52:00 Cassandra Chen COMPREHENSIVE METABOLIC 2019-05-14 14:52:00 Cassandra Chen PANEL HC COMPLETE BLD COUNT 2019-05-14 14:52:00 Cassandra Chen W/AUTO DIFF ESTIMATED GFR 2019-05-14 14:52:00 Cassandra Chen Plan of Care Planned Activity Planned Date Details Comments Source Future Scheduled 2020-02-28 INFLUENZA VACCINE Brittany kapoor Y[facility]ism Test 00:00:00 [code = INFLUENZA VACCINE] Future Scheduled 2016-02-02 65+ PNEUMOCOCCAL Flako [facility] Test 00:00:00 VACCINE (1 of 2 - PCV13) [code = 65+ PNEUMOCOCCAL VACCINE (1 of 2 - PCV13)] Future Scheduled 2001 BREAST CANCER Flako Ok [facility]odist Test 00:00:00 SCREENING [code = BREAST CANCER SCREENING] Future Scheduled 2001 COLONOSCOPY SCREENING Wallace Degroot Test 00:00:00 [code = COLONOSCOPY SCREENING] Future Scheduled 2001 SHINGLES VACCINES (#1) H shyann Yarsanism Test 00:00:00 [code = SHINGLES VACCINES (#1)] Results Test Description Test Time Test Comments Results Result Comments Source Surgical pathology request 2019-06-04 17:33:07 Test Item Value Reference Range Interpretation Comme nts Case number (test code = 1366208) [id number] Surgical pathology report (test code = See link below for PDF Lab R eport 2237) Result status (test code = 0444369) This is Final Report for [id number] [facility] [id number] 13:05:14 Test Item Value Reference Range Interpretation Comments POC glucose (test code = 107 mg/dL 65-99 H [facility] Notified 92976-8) RNMeter ID: [id number] tor: [place] [facility] Lab Interpretation (test Abnormal code = 31697-4) [facility] metabolic [id number] 05:28:11 Test Item Value Reference Range Interpretation Comments Sodium (test code = 2951-2) 140 135- 148 mEq/L Potassium (test code = 2823-3) 3.8 3.5- 5.0 mEq/L Chloride (test code = 2075-0) 104 98- 112 mEq/L CO2 (test code = 8-9) 25 24- 31 mEq/L Anion gap (test code = 31757-5) 11@ANIO 7- 15 mEq/L BUN (test code = 3094-0) 13 mg/dL 8-23 Creatinine (test code = 2160-0) 1.09 mg/dL 0.5-0.9 H Glucose (test code = 2345-7) 104 mg/dL 65-99 H Calcium (test code = 29790-8) 8.3 mg/dL 8.8-10.2 L Lab Interpretation (test code = Abnormal 41530-9) [place] [facility] [id number] 05:28:11 Test Item Value Reference Range Interpretation Comments Estimated GFR (test 60 mL/min/1.73 m2 [facility] Units code = 5488) InterpretationG 1 >=90 Normal or highG2 60-89 Mildly qcwstsbbyI8y 45-59 Mildly to mode rately haqomlifmI4c 30-44 Moderately to severely decreasedG4 15-29 Severely decre asedG5 <15 Kidn ey failureThe eGFR was calculated emily [place] the Chronic Kidney Disease Epidemiology Co llaboration (CKD-EPI) equat ion. Interpretation is based on recommendations of the National Kidney Foundation-Kidn ey Disease Outcomes Qualit y Initiative (NKF-KDOQI) pub lished in 2013. Flako MethodistCB with platelet and [id number] 05:12:29 Test Item Value Reference Range Interpretation Comments WBC (test code = 14083-1) 9.51 4.50- 11.00 k/uL RBC (test code = 89793-0) 3.95 m/uL 4.2-5.5 L HGB (test code = 718-7) 10.3 g/dL 12-16 L HCT (test code = 4544-3) 34.5 % 37-47 L MCV (test code = 787-2) 87.3 fL 82-100 MCH (test code = 785-6) 26.1 pg 27-34 L MCHC (test code = 786-4) 29.9 g/dL 31-37 L RDW - SD (test code = 46.6 fL 37-55 73262-9) MPV (test code = 55224-6) 9.3 fL 8.8-13.2 Platelet count (test code 214 150- 400 k/uL = 06236-2) Nucleated RBC (test code 0.00 /100 WBC = 79847-8) Neutrophils (test code = 63.8 % 39-69 09560-7) Lymphocytes (test code = 26.5 % 25-45 80119-7) Monocytes (test code = 6.6 % 0-10 33612-6) Eosinophils (test code = 2.4 % 0-5 22365-7) Basophils (test code = 0.4 % 0-1 51179-5) Immature granulocytes 0.3 % 0-1 "Immat ure (test code = 38563-7) granul ocytes" (promyelocytes, myelocytes, metamyelocytes) Lab Interpretation (test Abnormal code = 03254-0) Flako [id number] 14:03:58Arnold Zamora CRNA 05/28/2019 2:04 PMAirwayDate/Time: 05/28/2019 1:36 PMPerformed by: Arnold Zamora CRNAAuthorized by: Monalisa Combs MD Location: ORUrgency: ElectiveDifficult Airway: No Resident/HOSPITAL AIDES AND ASSISTANTS TEACHER/AA: Arnodl Zamora CRNAPerformed by: resident/HOSPITAL AIDES AND ASSISTANTS TEACHER/AAPreoxygenated with 100% O2: Yes Mask Ventilation: Easy maskFinal Airway Type: Endotracheal airwayFinal Endotracheal Airway: ETTCuffed: Yes Technique Used: Direct laryngoscopyDevices/Methods Used in Placement: Intubating styletInsertion Site: OralBlade Type: MillerLaryngoscope Blade/Videolaryngoscope Blade Size: 2ETT Size (mm): 7.0Cuff at minimum occlusion pressure: Yes Measured from: LipsETT to Lips (cm): 21Placement Verified by: CO2 detection, direct visualization and equal breath sounds Laryngoscopic view: Grade I - full view of glottisRapid Sequence Induction (RSI): No Modified RSI: No Number of Attempts at Approach: 1 Eyes taped immediately after LOC. Atraumatic DL/Intubation. No apparent change to oropharynx/dentition/lipsHouston MethodistHemoglobin [id number] 09:55:35 Test Item Value Reference Range Interpretation Comments Hemoglobin A1C (test 6.5 % 4-5.6 H HbA1c c utoffs for code = 46855-2) diagnosing diabetes:4.0% - 5.6% = normal5.7% - 6.4% = increased risk for diabetes (prediabetes)9> =6.5% = bdzstwvs2Aafp s for glycemic contro l (ADA 2016)< 7.0% Ta rget for non adults with latrice betes. More or less stringent targe ts may be appropriate for individual chintan ents. <7.5% Target for Children and adolescents wit h type 1 diabetes. Lab Interpretation (test Abnormal code = 40066-4) Flako MethodistType and [id number] 19:49:00 Test Item Value Reference Range Interpretation Comments ABO grouping (test code = 883-9) O Rh type (test code = 74537-1) POS Antibody screen (gel) (test code = NEG 890-4) Flako [facility]istComprehensive metabolic [id number] 17:52:27 Test Item Value Reference Range Interpretation Comments Sodium (test code = 143 135- 148 mEq/L 2951-2) Potassium (test code = 4.2 3.5- 5.0 mEq/L 2823-3) Chloride (test code = 103 98- 112 mEq/L 2074-0) CO2 (test code = 2027-) 28 24- 31 mEq/L Anion gap (test code = 12@ANIO 7- 15 mEq/L 91967-0) BUN (test code = 3094-0) 16 mg/dL 8-23 Creatinine (test code = 0.94 mg/dL 0.5-0.9 H 2160-0) Glucose (test code = 82 mg/dL 65-99 2345-7) Calcium (test code = 9.9 mg/dL 8.8-10.2 66011-0) Protein (test code = 7.6 g/dL 6.3-8.3 9994.6-7.0 2885-2) g/dL1 nvob7817.4-7.6 g/dL7 months-0nsqs721 .1- 7.3 g/dL1-2 ldyga667.6-7.5 g/dL>3 svrta295.0-8.0 g/hX19-1187782. 3-8 .3 g/dL Albumin (test code = 3.6 g/dL 3.5-5 175-7) A/G ratio (test code = 0.9 0.7-3.8 1759-0) Alkaline phosphatase 80 U/L 35-104 (test code = 6768-6) AST (test code = 1920-8) 15 U/L 10-35 ALT (test code = 1742-6) 12 U/L 5-50 Total bilirubin (test <0.2 0-1.2 code = 1974-) Lab Interpretation (test Abnormal code = 04315-4) Flako Degroot
[2019-12-28] MEDS ORDERED: METHYLPREDNISOLONE 125 MG INJ ONE (08:39)
[2019-12-28] MEDS ORDERED: DIAZEPAM 5 MG TABLET ONE (08:40)
[2019-12-28] MEDS ORDERED: KETOROLAC 30 MG/ML INJ ONE (08:40)
[2019-12-28 11:10] VITALS: TEMP 97.5
[2019-12-28 11:11] VITALS: BP 136/69; O2SAT 99
--- NOTE | 2019-12-29 18:48 | ER ---
Nurse's Notes [facility] Name: Tiki Mancini Age: 69 yrs Sex: Female : 1950 Arrival Date: 12/28/2019 Time: 07:33 Bed 16 Private MD: Diagnosis: Torticollis;Muscle spasm Presentation: 12/27 07:59 Chief complaint: Patient states: pain to right side of neck radiating down to shoulder iw into arm, has taken Tylenol, has similar pain to left side in past, pain started intermittently 2-3 days ago, yesterday got worse and couldn't turn her head. Coronavirus screen: Proceed with normal triage. Patient denies a cough. Patient denies shortness of breath or difficulty breathing. Patient denies measured and/or subjective temperature greater than 100.4F prior to today's visit. Patient denies travel on a cruise ship or to a country the [facility] currently lists as an affected area. Patient denies contact with known and/or suspected case of COVID-19. Ebola Screen: Patient negative for fever greater than or equal to 101.5 degrees Fahrenheit, and additional compatible Ebola Virus Disease symptoms Patient denies exposure to infectious person. Patient denies travel to an Ebola-affected area in the 21 days before illness onset. No symptoms or risks identified at this time. Initial Sepsis Screen: Does the patient meet any 2 criteria? No. Patient's initial sepsis screen is negative. Does the patient have a suspected source of infection? No. Patient's initial sepsis screen is negative. Risk Assessment: Do you want to hurt yourself or someone else? Patient reports no desire to harm self or others. Onset of symptoms was December 24, 2019. 07:59 Method Of Arrival: Ambulatory iw 07:59 Acuity: BEATRIZ 3 iw Historical: - Allergies: 08:03 No Known Allergies; iw - Home Meds: 08:03 carisoprodol 350 mg Oral tab 1 tab 3 times per day [Active]; metformin 1,000 mg Oral iw tab 1 tab 2 times per day [Active]; clonidine HCl 0.1 mg Oral tab 1 tab 2 times per day [Active]; metoprolol tartrate 100 mg Oral tab 1 tab once daily [Active]; hydrochlorothiazide 25 mg Oral tab 1 tab once daily [Active]; lisinopril 40 mg Oral tab twice a day [Active]; - PMHx: 08:03 colon cancer; Diabetes - NIDDM; Hypertension; iw - PSHx: 08:03 cancer removed from colon; Hysterectomy; Tubal ligation; iw - Immunization history:: Adult Immunizations up to date. - Social history:: Smoking status: Patient denies any tobacco usage or history of. Screenin:20 Abuse screen: Denies threats or abuse. Nutritional screening: No deficits noted. rb1 Tuberculosis screening: No symptoms or risk factors identified. Fall Risk None identified. Assessment: 08:20 General: Appears uncomfortable, Behavior is calm, cooperative. Pain: Complains of pain rb1 in right side of her neck Pain radiates to right arm Pain currently is 8 out of 10 on a pain scale. Pain began 2-3 days ago. Neuro: Level of Consciousness is awake, alert, obeys commands, Oriented to person, place, time, situation. Cardiovascular: Capillary refill < 3 seconds. Respiratory: Airway is patent Respiratory effort is even, unlabored, Respiratory pattern is regular, symmetrical. GI: No signs and/or symptoms were reported involving the gastrointestinal system. : No signs and/or symptoms were reported regarding the genitourinary system. Derm: Skin is dry, Skin is normal, Skin temperature is warm. Musculoskeletal: Range of motion: intact in all extremities. 09:20 Reassessment: Patient appears in no apparent distress at this time. Patient and/or rb1 family updated on plan of care and expected duration. Pain level reassessed. Patient is alert, oriented x 3, equal unlabored respirations, skin warm/dry/pink. Patient states feeling better. 10:20 Reassessment: Patient appears in no apparent distress at this time. Pt. is talking on rb1 the telephone. Vital Signs: 07:59 BP 158 / 60; Pulse 78; Resp 16; Temp 97.7; Pulse Ox 100% on R/A; Weight 88.45 kg; iw Height 5 ft. 6 in. (167.64 cm); Pain 9/10; 08:30 BP 136 / 83; Pulse 68; Resp 18; Pulse Ox 99% ; rb1 09:30 BP 137 / 77; Pulse 61; Resp 17; Pulse Ox 95% on R/A; rb1 10:03 BP 144 / 81; Pulse 65; Resp 16; Temp 97.5(O); Pulse Ox 100% on R/A; mh5 10:30 BP 136 / 69; Pulse 61; Resp 17; Pulse Ox 99% on R/A; rb1 07:59 Body Mass Index 31.47 (88.45 kg, 167.64 cm) ED Course: 07:33 Patient arrived in ED. ph 07:52 Guillermo Borja MD is Attending Physician. kdr 08:01 Triage completed. iw 08:03 Arm band placed on. iw 09:00 Estela Ordoñez, RN is Primary Nurse. rb1 10:04 Patient has correct armband on for positive identification. Bed in low position. Call mh5 light in reach. Pulse ox on. NIBP on. 10:04 Inserted saline lock: 20 gauge in right antecubital area, using aseptic technique. 5 10:43 No provider procedures requiring assistance completed. IV discontinued, intact, rb1 bleeding controlled, No redness/swelling at site. Pressure dressing applied. Administered Medications: 08:58 Drug: Robaxin 1 grams Route: IVPB; Infused Over: 1 hrs; Site: right antecubital; rb1 09:12 Follow up: Response: No adverse reaction; IV Status: Completed infusion rb1 08:58 Drug: Valium 5 mg Route: PO; rb1 09:30 Follow up: Response: No adverse reaction rb1 08:58 Drug: SOLU-Medrol 60 mg Route: IVP; Site: right antecubital; rb1 09:12 Follow up: Response: No adverse reaction rb1 08:58 Drug: TORadol - Ketorolac 15 mg Route: IVP; Site: right antecubital; rb1 09:12 Follow up: Response: No adverse reaction rb1 Outcome: 10:11 Discharge ordered by . kdr 10:43 Discharged to home via wheelchair, with family. rb1 10:43 Condition: stable 10:43 Discharge instructions given to patient, Instructed on discharge instructions, follow up and referral plans. medication usage, Demonstrated understanding of instructions, follow-up care, medications, Prescriptions given X 4. 10:47 Patient left the ED. rb1 Signatures: Guillermo Borja MD MD [facility] Andressa Noguera RN RN Swapna Arora RN RN Estela Ordoñez, HERNAN RN [facility] Francesca Leon [facility]
--- NOTE | 2019-12-29 18:48 | EDPHYS ---
Physician Documentation [facility] Name: Tiki Mancini Age: 69 yrs Sex: Female : 1950 Arrival Date: 12/28/2019 Time: 07:33 Bed 16 Private MD: ED Physician Guillermo Borja HPI: 12/27 08:29 This 69 yrs old Black Female presents to ER via Ambulatory with complaints of Neck kdr Pain, >24Hrs Old, Arm Pain, Leg Pain. 08:29 The patient or guardian complains of decreased range of motion, pain, that is acute, kdr spasm, stiffness, tightness, tenderness. The symptoms are located on the scalp, right trapezius, chest and right posterior aspect of neck. Onset: The symptoms/episode began/occurred gradually, 3 day(s) ago. Context: The problem was sustained at home, The neck injury/problem resulted from from unknown cause. Associated signs and symptoms: Pertinent positives: Rain radiating down right arm. The pain radiates to the right arm. Modifying factors: The symptoms are alleviated by remaining still, the symptoms are aggravated by movement. Severity of symptoms: At their worst the symptoms were incapacitating, in the emergency department the symptoms are unchanged. The patient has experienced similar episodes in the past, a few times, but today's symptoms are worse, more painful. The patient has not recently seen a physician. Historical: - Allergies: 08:03 No Known Allergies; iw - Home Meds: 08:03 carisoprodol 350 mg Oral tab 1 tab 3 times per day [Active]; metformin 1,000 mg Oral iw tab 1 tab 2 times per day [Active]; clonidine HCl 0.1 mg Oral tab 1 tab 2 times per day [Active]; metoprolol tartrate 100 mg Oral tab 1 tab once daily [Active]; hydrochlorothiazide 25 mg Oral tab 1 tab once daily [Active]; lisinopril 40 mg Oral tab twice a day [Active]; - PMHx: 08:03 colon cancer; Diabetes - NIDDM; Hypertension; iw - PSHx: 08:03 cancer removed from colon; Hysterectomy; Tubal ligation; iw - Immunization history:: Adult Immunizations up to date. - Social history:: Smoking status: Patient denies any tobacco usage or history of. ROS: 08:29 Constitutional: Negative for fever, chills, and weight loss, Eyes: Negative for injury, kdr pain, redness, and discharge, ENT: Negative for injury, pain, and discharge, Cardiovascular: Negative for chest pain, palpitations, and edema, Respiratory: Negative for shortness of breath, cough, wheezing, and pleuritic chest pain. 08:29 Neck: Positive for pain with movement, pain at rest, stiffness, tenderness, of the right trapezius. Exam: 08:29 Constitutional: This is a well developed, well nourished patient who is awake, alert, kdr and in no acute distress. Head/Face: Normocephalic, atraumatic. Eyes: Pupils equal round and reactive to light, extra-ocular motions intact. Lids and lashes normal. Conjunctiva and sclera are non-icteric and not injected. Cornea within normal limits. Periorbital areas with no swelling, redness, or edema. Chest/axilla: Normal chest wall appearance and motion. Nontender with no deformity. No lesions are appreciated. Cardiovascular: Regular rate and rhythm with a normal S1 and S2. No gallops, murmurs, or rubs. Normal PMI, no JVD. No pulse deficits. 08:29 Neck: External neck: is normal, ROM/movement: pain, that is moderate, that is severe, with rotation to the right. Vital Signs: 07:59 BP 158 / 60; Pulse 78; Resp 16; Temp 97.7; Pulse Ox 100% on R/A; Weight 88.45 kg; iw Height 5 ft. 6 in. (167.64 cm); Pain 9/10; 08:30 BP 136 / 83; Pulse 68; Resp 18; Pulse Ox 99% ; rb1 09:30 BP 137 / 77; Pulse 61; Resp 17; Pulse Ox 95% on R/A; rb1 10:03 BP 144 / 81; Pulse 65; Resp 16; Temp 97.5(O); Pulse Ox 100% on R/A; mh5 10:30 BP 136 / 69; Pulse 61; Resp 17; Pulse Ox 99% on R/A; rb1 07:59 Body Mass Index 31.47 (88.45 kg, 167.64 cm) iw MDM: 08:29 Data reviewed: vital signs, nurses notes. Counseling: I had a detailed discussion with kdr the patient and/or guardian regarding: the historical points, exam findings, and any diagnostic results supporting the discharge/admit diagnosis, the need for outpatient follow up. 10:11 Patient medically screened. kdr Administered Medications: 08:58 Drug: Robaxin 1 grams Route: IVPB; Infused Over: 1 hrs; Site: right antecubital; rb1 09:12 Follow up: Response: No adverse reaction; IV Status: Completed infusion rb1 08:58 Drug: Valium 5 mg Route: PO; rb1 09:30 Follow up: Response: No adverse reaction rb1 08:58 Drug: SOLU-Medrol 60 mg Route: IVP; Site: right antecubital; rb1 09:12 Follow up: Response: No adverse reaction rb1 08:58 Drug: TORadol - Ketorolac 15 mg Route: IVP; Site: right antecubital; rb1 09:12 Follow up: Response: No adverse reaction rb1 Disposition: 12/28/19 10:11 Discharged to Home. Impression: Torticollis, Muscle spasm. - Condition is Stable. - Discharge Instructions: Acute Torticollis, Adult, Neck Exercises. - Prescriptions for Ibuprofen 600 mg Oral Tablet - take 1 tablet by ORAL route every 6 hours As needed take with food; 15 tablet. Prednisone 20 mg Oral Tablet - take 1 tablet by ORAL route once daily for 3 days; 3 tablet. Robaxin 500 mg Oral Tablet - take 2 tablets by ORAL route every 6 hours As needed; 24 tablet. Tramadol 50 mg Oral Tablet - take 1 tablet by ORAL route every 8 hours as needed; 12 tablet. - Medication Reconciliation Form, Thank You Letter form. - Follow up: Private Physician; When: 2 - 3 days; Reason: If symptoms return, Further diagnostic work-up, Recheck today's complaints, Continuance of care, Re-evaluation by your physician. - Problem is new. - Symptoms have improved. Signatures: Guillermo Borja MD MD kdr Andressa Noguera, HERNAN RN iw Estela Ordoñez RN RN rb1 Corrections: (The following items were deleted from the chart) 10:47 10:11 12/28/2019 10:11 Discharged to Home. Impression: Torticollis; Muscle spasm. rb1 Condition is Stable. Discharge Instructions: Acute Torticollis, Adult. Forms are Medication Reconciliation Form, Thank You Letter, Antibiotic Education, Prescription Opioid Use. Follow up: Private Physician; When: 2 - 3 days; Reason: If symptoms return, Further diagnostic work-up, Recheck today's complaints, Continuance of care, Re-evaluation by your physician. Problem is new. Symptoms have improved. kdr
== END 2019-12-28 10:47 | disposition home or self-care (01) ==
LOC: ER 07:31
DX: M43.6 Torticollis (principal); M62.838 Other muscle spasm; I10 Essential (primary) hypertension; E11.9 Type 2 diabetes mellitus without complications; Z85.038 Personal history of other malignant neoplasm of large intestine
CPT/HCPCS: 96375; 96374; 99284; J2930; J2800

== ENCOUNTER 2021-11-03 15:37 | Emergency (ER) | payer OTHER ==
--- OUTSIDE RECORDS SUMMARY | 2021-11-03 15:53 | XMS REPORT | Continuity of Care Document ---
:1950 Author Organization [facility] t Address [address] [place] [address] Care Team Providers Name Role Phone RIZO Primary Care Physician Unavailable RADIOLOGY Attending Clinician Unavailable RIZO Admitting Clinician Unavailable Payers Payer Name Policy Type Policy Number Effective Date Expiration Date S abhi [employer] MED[employer]ARE [id number] 2016 2021 ADV 00:00:00 00:00:00 Problems This patient has no known problems. Allergies, Adverse Reactions, Alerts Allergy Allergy Status Severity Reaction(s) Onset Inactive Treating Comm ents Source Name Type Date Date Clinician NO KNOWN Drug Active [facility] ALLERGIE Class [facility] Medications This patient has no known medications. Procedures This patient has no known procedures. Encounters Start End Encounter Admission Attending Care Care Encounter Source Date/Time Date/Time Type Type Clinicians Facility Department ID 2019-07-08 2019-07-08 Outpatient R RADIOLOGY [facility] [id number] [facility] 08:22:21 23:59:00 [facility] Results This patient has no known results.
[2021-11-03 16:43] LABS: Absolute Lymphocytes (CBC) 2.5 K/uL (0.7-4.9); Hematocrit 38.1 % (36.0-45.0); Lymphocytes % 33.6 % (15.3-44.8); MPV 7.1 fL (7.6-11.3); RBC Red Blood Cell Count 4.61 M/uL (3.86-4.86)
[2021-11-03 16:44] LABS: Protime INR 1.1
[2021-11-03 17:02] LABS: ALT/SGPT 17 U/L (12-78); AST/SGOT 15 U/L (15-37); Albumin 3.3 g/dL (3.4-5.0); Alkaline Phosphatase 75 U/L (45-117); BUN Blood Urea Nitrogen 14 mg/dL (7-18); Bicarbonate 30 mmol/L (21-32); Bilirubin Direct < 0.1 mg/dL (0-0.2); Bilirubin Total 0.2 mg/dL (0.2-1.0); Glucose Level 106 mg/dL (74-106); Magnesium 1.6 mg/dL (1.8-2.4); NT PRO-BNP 627 pg/mL (<125); Potassium 3.7 mmol/L (3.5-5.1); Protein, Total 7.4 g/dL (6.4-8.2); Sodium Level 140 mmol/L (136-145)
--- NOTE | 2021-11-03 17:41 | RAD REPORT ---
EXAM DESCRIPTION: RAD - Chest Single View - 11/03/2021 4:59 pm CLINICAL HISTORY: near syncope COMPARISON: Two view chest June 2019 TECHNIQUE: AP portable chest image was obtained 11/03/2021 4:59 pm . FINDINGS: No focal mass or consolidation. Interstitial markings are accentuated by portable tech kne e and under penetrated technique. Significant change doubtful. Minimal edema or infiltrate could be m asked. Heart and vasculature are normal. No measurable pleural effusion and no pneumothorax. No acute bony abnormality seen. No acute aortic findings suspected. IMPRESSION: No focal mass or consolidation. Mild baseline prominence of the interstitial pattern could mask mild edema or infiltrate.
--- NOTE | 2021-11-03 17:53 | RAD REPORT ---
EXAM DESCRIPTION: CT - Head Brain Wo Cont - 11/03/2021 5:45 pm CLINICAL HISTORY: DIZZINESS COMPARISON: Head angio dated 11/03/2021; HEAD BRAIN W O CONTRAST dated 04/06/2015 TECHNIQUE: Axial 5 mm thick images of the head were obtained without IV contrast. All CT scans are performed using dose optimization technique as appropriate and may include automated exposure control or mA/KV adjustment according to patient size. FINDINGS: No intracranial hemorrhage, mass, edema or shift of mid-line structures. No acute infarcti on changes seen. No abnormal extra-axial fluid collections. Ventricles are normal. No significant atr ophy chronic ischemic change. Physiologic basal ganglia calcifications are present. For acute finding Mastoid air cells and visualized portions of the paranasal sinuses are clear. No acute bony findings. IMPRESSION: Negative non-contrast CT head examination. No significant change from the 2015 study.
--- NOTE | 2021-11-03 17:54 | RAD REPORT ---
EXAM DESCRIPTION: CT - Head angio - 11/03/2021 5:45 pm CLINICAL HISTORY: DIZZINESS TECHNIQUE: During dynamic enhancement using nonionic IV contrast, axial 1 millimeter thick images of the head were obtained. Sagittal and axial reconstruction images were generated using MIP technique and reviewed. All CT scans are performed using dose optimization technique as appropriate and may include automated exposure control or mA/KV adjustment according to patient size. COMPARISON: CT head same date FINDINGS: No aneurysm or vascular malformation identified. Major venous sinuses are patent. No stenosis, named branch occlusion, vasculitis or other significant vascular finding identifiable. A therosclerotic calcifications are seen along the michael of each cavernous internal carotid artery. Thi s does not cause significant luminal narrowing. IMPRESSION: Negative CT angio head examination for acute or significant finding.
--- NOTE | 2021-11-03 17:56 | RAD REPORT ---
EXAM DESCRIPTION: CT - Neck Angio - 11/03/2021 5:45 pm CLINICAL HISTORY: dizziness TECHNIQUE: During dynamic enhancement using nonionic IV contrast, axial 2 mm thick images of the nec k were obtained. Sagittal and axial reconstruction images were generated using MIP technique and revi ewed. All CT scans are performed using dose optimization technique as appropriate and may include automated exposure control or mA/KV adjustment according to patient size. COMPARISON: CT head same date, CT angio head same date FINDINGS: No aneurysm or vascular malformation identified. No carotid or vertebral dissection. No aortic arch or great vessel origin abnormality seen. Vertebral artery origins unremarkable as well . No stenosis, vasculitis or other significant carotid artery finding. No focal abnormality of either vertebral artery. Left vertebral artery is dominant as a normal anatomic variant. Basilar artery is normal. IMPRESSION: Negative CT angio neck examination.
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
[2021-11-03 19:06] LABS: Troponin High Sensitivity 5.5 pg/mL (<58.9)
[2021-11-03 22:37] VITALS: TEMP 97.9
[2021-11-03 22:38] VITALS: BP 159/69; O2SAT 100
--- NOTE | 2021-11-04 07:47 | EKG ---
Test Date: 2021-11-03 Test Time: 15:41:25 Sand Temperer: TP MEASUREMENT RESULTS: Intervals: Rate: 67 NE: 118 QRSD: 84 QT: 394 QTc: 416 [place]: P: 14 NE: 118 QRS: 3 T: 38 INTERPRETIVE STATEMENTS: Normal sinus rhythm Possible Anterior infarct, age undetermined Abnormal ECG Compared to ECG 04/16/2015 13:58:30 Myocardial infarct finding now present Short NE interval no longer present Electronically Signed On 11-04-21 07:45:59 CDT by Tyson Rosario
== END 2021-11-03 19:04 | disposition home or self-care (01) ==
LOC: ER 15:37
DX: R42 Dizziness and giddiness (principal); R55 Syncope and collapse; V49.40XA Driver injured in collision with unspecified motor vehicles in traffic accident, initial encounter; E11.9 Type 2 diabetes mellitus without complications; I10 Essential (primary) hypertension; Z85.038 Personal history of other malignant neoplasm of large intestine; Z88.5 Allergy status to narcotic agent
CPT/HCPCS: 93005; 85025; 80048; 36415; 83735; 85610; 80076; 84484; 83880; 70450; 70496; 70498; 71045; 99284; Q9967

== ENCOUNTER 2024-04-22 07:56 | Emergency (ER) | payer OTHER ==
--- NOTE | 2024-04-22 09:05 | ER ---
Nurse's Notes [facility] Name: Tiki Mancini Age: 74 yrs Sex: Female : 1950 Arrival Date: 04/22/2024 Time: 07:56 Bed 15 Private MD: Diagnosis: Cellulitis of back [any part except buttock] Presentation: 04/22 08:13 Coronavirus screen: At this time, the client does not indicate any symptoms associated mb9 with coronavirus-19. Ebola Screen: No symptoms or risks identified at this time. Initial Sepsis Screen: Does the patient meet any 2 criteria? No. Patient's initial sepsis screen is negative. Does the patient have a suspected source of infection? No. Patient's initial sepsis screen is negative. Risk Assessment: Do you want to hurt yourself or someone else? Patient reports no desire to harm self or others. 08:13 Method Of Arrival: Ambulatory 9 08:16 Chief complaint: Patient states: she has had a "red area" in her mid lower back for 2-3 ap3 days. patient complains of pain 3/10. Onset of symptoms was April 19, 2024. 08:16 Acuity: BEATRIZ 4 ap3 Triage Assessment: 08:19 General: Appears in no apparent distress. Behavior is calm, cooperative, appropriate ap3 for age. Pain: Complains of pain in lumbar area Pain currently is 3 out of 10 on a pain scale. Neuro: Level of Consciousness is awake, alert, obeys commands, Oriented to person, place, time, situation, Appropriate for age. Cardiovascular: Patient's skin is warm and dry. Respiratory: Airway is patent Respiratory effort is even, unlabored, Respiratory pattern is regular, symmetrical. Derm: reddened area in mid lower back area. Historical: - Allergies: 08:09 Morphine; mb9 - PMHx: 08:09 colon cancer; Diabetes - NIDDM; Hypertension; mb9 - Immunization history:: Adult Immunizations up to date. - Infectious Disease History:: Denies. - Social history:: Smoking status: Patient denies any tobacco usage or history of. Screenin:08 [facility] ED Fall Risk Assessment (Adult) History of falling in the last 3 months, mb9 including since admission No falls in past 3 months (0 pts) Confusion or Disorientation No (0 pts) Intoxicated or Sedated No (0 pts) Impaired Gait No (0 pts) Mobility Assist Device Used No (0 pt) Altered Elimination No (0 pt) Score/Fall Risk Level 0 - 2 = Low Risk Oriented to surroundings, Maintained a safe environment, Educated pt \\T\\ family on fall prevention, incl call for assistance when getting out of bed. Abuse screen: Denies threats or abuse. Nutritional screening: No deficits noted. Tuberculosis screening: No symptoms or risk factors identified. Assessment: 08:28 General: Appears in no apparent distress. Behavior is calm, cooperative. Pain: mb9 Complains of pain in lumbar area. Neuro: Ortez Agitation-Sedation Scale (RASS): 0 - Alert and Calm Level of Consciousness is awake, alert, obeys commands, Oriented to person, place, time, situation, Appropriate for age. Cardiovascular: Patient's skin is warm and dry. Respiratory: Airway is patent Respiratory effort is even, unlabored, Respiratory pattern is regular, symmetrical. GI: No signs and/or symptoms were reported involving the gastrointestinal system. : No signs and/or symptoms were reported regarding the genitourinary system. EENT: No signs and/or symptoms were reported regarding the EENT system. Derm: Skin is pink, warm \\T\\ dry. Abscess located on back and lumbar area is dime sized, has no drainage. Musculoskeletal: Range of motion: intact in all extremities. Vital Signs: 08:13 BP 185 / 87; Pulse 82; Resp 18; Temp 97.5; Pulse Ox 100% on R/A; mb9 09:13 BP 145 / 85; Pulse 74; Resp 18; Pulse Ox 100% on R/A; mb9 ED Course: 08:03 Patient arrived in ED. mg5 08:08 Miesha Tapia, HERNAN is Primary Nurse. mb9 08:08 Arm band placed on. mb9 08:09 Placed in gown. Bed in low position. Call light in reach. Side rails up X 1. Provided mb9 Education on: press call light if needing anything. Client placed on continuous cardiac and pulse oximetry monitoring. NIBP monitoring applied. 08:10 Aashish Gentile DO is Attending Physician. ms3 08:18 Triage completed. ap3 09:04 Aron Kellogg DO is Referral Physician. ms3 09:13 No provider procedures requiring assistance completed. Patient did not have IV access mb9 during this emergency room visit. Administered Medications: No medications were administered Medication: 08:09 VIS not applicable for this client. mb9 Outcome: :04 Discharge ordered by . ms3 09:13 Discharged to home ambulatory, mb9 :13 Condition: stable :13 Discharge instructions given to patient, Instructed on discharge instructions, follow up and referral plans. Demonstrated understanding of instructions, follow-up care, medications, Prescriptions given X 1, :13 Patient left the ED. mb9 Signatures: Cassandra Huston, RN RN ap3 Aashish Gentile DO DO ms3 Miesha Tapia RN RN mb9 Yun Damico mg5 Corrections: (The following items were deleted from the chart) 08:28 08:13 BP 185 / 87; Pulse 82bpm; Resp 18bpm; Pulse Ox 100% RA; mb9 mb9
--- NOTE | 2024-04-22 09:14 | EDPHYS ---
Physician Documentation [facility] Name: Tiki Mancini Age: 74 yrs Sex: Female : 1950 Arrival Date: 04/22/2024 Time: 07:56 Bed 15 Private MD: ED Physician Aashish Gentile HPI: 04/22 09:05 This 74 yrs old Black Female presents to ER via Ambulatory with complaints of Cyst. ms3 09:05 74-year-old female with past medical history of colon cancer, diabetes, hypertension ms3 presents to the emergency department for painful red area to her left lower back. Patient states the area has been for 3 days. Patient states pain is worse when extending her back and better with flexion of the back. Patient denies fevers, chills. She endorses fatigue. Historical: - Allergies: 08:09 Morphine; mb9 - PMHx: 08:09 colon cancer; Diabetes - NIDDM; Hypertension; mb9 - Immunization history:: Adult Immunizations up to date. - Infectious Disease History:: Denies. - Social history:: Smoking status: Patient denies any tobacco usage or history of. ROS: 09:05 Constitutional: Negative for fever, and chills. Neck: Negative for injury, pain, and ms3 swelling, Cardiovascular: Negative for chest pain, and palpitations. Respiratory: Negative for shortness of breath, cough, wheezing, and pleuritic chest pain, Abdomen/GI: Negative for abdominal pain, nausea, vomiting, diarrhea, and constipation, MS/Extremity: Negative for injury and deformity, 09:05 Skin: Positive for cellulitis, Exam: 09:05 Constitutional: This is a well developed, well nourished patient who is awake, alert, ms3 and in no acute distress. Chest/axilla: Normal chest wall appearance and motion. Nontender with no deformity. Cardiovascular: Regular rate and rhythm with a normal S1 and S2. No gallops, murmurs, or rubs. Normal PMI, no JVD. No pulse deficits. Respiratory: Lungs have equal breath sounds bilaterally, clear to auscultation and percussion. No rales, rhonchi or wheezes noted. No increased work of breathing, no retractions or nasal flaring. Abdomen/GI: Soft, non-tender, with normal bowel sounds. No distension or tympany. No guarding or rebound. No evidence of tenderness throughout. 09:05 Skin: cellulitis, that is moderate, confluent, on the Left lower back, Vital Signs: 08:13 BP 185 / 87; Pulse 82; Resp 18; Temp 97.5; Pulse Ox 100% on R/A; mb9 09:13 BP 145 / 85; Pulse 74; Resp 18; Pulse Ox 100% on R/A; mb9 MDM: 09:04 Patient medically screened. ms3 09:05 Differential diagnosis: Cellulitis versus abscess versus sebaceous cyst. Data reviewed: ms3 vital signs, nurses notes, and as a result, I will discharge patient. I considered the following discharge prescriptions or medication management in the emergency department See prescriptions. Care significantly affected by the following chronic conditions: Diabetes, Hypertension. Counseling: I had a detailed discussion with the patient and/or guardian regarding the historical points, exam findings, and any diagnostic results supporting the discharge/admit diagnosis, the need for outpatient follow up, to return to the emergency department if symptoms worsen or persist or if there are any questions or concerns that arise at home. Special discussion: I discussed with the patient/guardian in detail that at this point there is no indication for admission to the hospital. It is understood, however, that if the symptoms persist or worsen the patient needs to return immediately for re-evaluation. ED course: Discussed physical exam findings with patient. Patient to follow-up with primary care physician in 2 to 3 days. Patient understands and agrees with plan. All questions were answered. Return precautions discussed include worsening symptoms, fevers, or any other concerns. Administered Medications: No medications were administered Disposition: 11:57 Chart complete. ms3 Disposition Summary: 04/22/24 09:04 Discharge Ordered Notes: Location: Home ms3 Condition: Stable ms3 Diagnosis - Cellulitis of back [any part except buttock] ms3 Followup: ms3 - With: Aron Kellogg DO - When: 2 - 3 days - Reason: Recheck today's complaints Discharge Instructions: - Discharge Summary Sheet ms3 - Cellulitis, Adult ms3 Forms: - Medication Reconciliation Form ms3 - Antibiotic Education ms3 - Prescription Opioid Use ms3 - Patient Portal Instructions ms3 - Leadership Thank You Letter ms3 Prescriptions: - Doxycycline Hyclate 100 mg Oral Tablet - take 1 tablet ORAL route every 12 hours; 20 tablet; Refills: 0, Product ms3 Selection Permitted Signatures: Cassandra Huston RN RN ap3 Aashish Gentile DO DO ms3 Miesha Tapia RN RN mb9
[2024-04-22 09:17] VITALS: TEMP 97.5; O2SAT 100
[2024-04-22 09:19] VITALS: BP 145/85
== END 2024-04-22 09:13 | disposition home or self-care (01) ==
LOC: ER 07:56
DX: L03.312 Cellulitis of back [any part except buttock and flank] (principal)
CPT/HCPCS: 99283

== ENCOUNTER 2025-05-06 11:08 | Emergency (ER) | payer OTHER ==
[2025-05-06] MEDS ORDERED: TRAMADOL HCL 50 MG TAB ONE (12:33)
--- NOTE | 2025-05-06 12:53 | RAD REPORT ---
EXAMINATION: Hip Left 2 View CLINICAL INDICATION: Female, 75 years old. PAIN COMPARISON: No prior exam. FINDINGS: No acute fracture. No malalignment/dislocation. Mild left acetabular and femoral head spurring. Other: n/a IMPRESSION: No acute osseous abnormality.
--- NOTE | 2025-05-06 12:55 | RAD REPORT ---
EXAMINATION: Lumbar Spine 3 Views CLINICAL INDICATION: Female, 75 years old. PAIN TECHNIQUE: AP, lateral, focused lateral lumbosacral views of the lumbar spine were obtained. [id number]. COMPARISON: 01/06/2025 FINDINGS: ALIGNMENT: Grade 1 anterolisthesis of L5 on S1. BONES: No acute fracture. DEGENERATIVE: Diffuse disc height loss which is moderate at L1-2 and L2-3 and mild otherwise. Bridgin g a partially bridging osteophytes present. At least moderate facet degenerative changes are present at L5-S1. SOFT TISSUE: No soft tissue abnormalities. IMPRESSION: No acute lumbar spine abnormality. Mild to moderate degenerative disc disease.
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
[2025-05-06 14:30] VITALS: BP 168/79; TEMP 98.1; O2SAT 100
== END 2025-05-06 14:01 | disposition home or self-care (01) ==
LOC: ER 11:08
DX: M25.552 Pain in left hip (principal); M54.50 Low back pain, unspecified; V49.40XA Driver injured in collision with unspecified motor vehicles in traffic accident, initial encounter
CPT/HCPCS: 72100; 99283